=== PATIENT | male | born 1990 | race African-American/Black ===

== ENCOUNTER 2017-05-11 15:54 | Emergency (ER) | payer SELFPAY | END 2017-05-11 16:46 | disposition home or self-care (01) | LOC: SED 15:54 | DX: M54.16 Radiculopathy, lumbar region (principal); Z98.890 Other specified postprocedural states | CPT/HCPCS: 96372; 99283; J1885 ==

== ENCOUNTER 2017-05-17 12:56 | Emergency (ER) | payer SELFPAY ==
[~2017-05-17] VITALS: Ht 185.4 cm; Wt 65.8 kg
--- NOTE | ~2017-05-17 | CR181 ---
[facility] A Service of [facility] RADIOLOGY TEXT RESULTS PATIENT: NAIMA GASTON LOCATION: CFTX : [birth year] UNIT #: [id number] AGE: [address]: Jesika Sheridan APRN SEX: M ORDER DR: [id number] [facility] [address] [place], [place] [address] [id number] MR#: [id number] Acc #: [id number] NAME: NAIMA GASTON : 1990 SEX: M STUDY DATE/TIME: 05/17/2017 13:45 UNIT: [facility] ROOM: STUDY DESCRIPTION: CR Lumbar Spine 2 or 3 Views Attending Physician: Jesika Sheridan A.P.R.N. Ordering Physician: Ed Abraham Suarez M.D. Primary Care Physician: No Primary Care Physician MEDICAL IMAGING REPORT This report is preliminary unless electronic signature is present EXAM Lumbar spine, 05/17/2017. INDICATIONS Low back pain for 1.5 weeks. No trauma. FINDINGS AP and lateral projections of the lumbar segment show good mineralization of both anterior and posterior elements. They are all anatomically normal without indication of fracture, dislocation, or malignant change of a sclerotic or lytic type. There is no congenital defect noted. The sacroiliac joints are normal. IMPRESSION Normal lumbar spine. Dictated by... Brant Reyna Jr., M.D. THIS IS AN ELECTRONICALLY VERIFIED REPORT Brant Reyna Jr., M.D. at 05/17/2017 4:39 PM ANNE/nina TD: 05/17/2017 15:22 JOB #: [id number] MEDICAL IMAGING REPORT Page 1 of 1 COPY
== END 2017-05-17 14:50 | disposition home or self-care (01) ==
LOC: CED 12:56 → CFTX 12:56
DX: S33.5XXA Sprain of ligaments of lumbar spine, initial encounter (principal); X50.0XXA Overexertion from strenuous movement or load, initial encounter
CPT/HCPCS: 72100; 96372; 99283; J1885